=== PATIENT | male | born 1965 | race American Indian/Alaskan Native ===

== ENCOUNTER 2020-10-06 16:30 | Emergency (ER) | payer BC ==
[2020-10-06] MEDS ORDERED: MORPHINE 4 MG/1 ML INJ IV ONE (17:03)
[2020-10-06] MEDS ORDERED: ONDANSETRON 4 MG/2 ML INJ IV ONE (17:03)
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
[2020-10-06 18:46] VITALS: BP 150/78
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
[2020-10-06] MEDS ORDERED: oxyCODONE /ACETAMINOPHEN 5-325MG TAB PO ONE ×2 (19:03→22:00)
[2020-10-06] MEDS ORDERED: IBUPROFEN 800 MG TAB PO ONE ×2 (19:03→22:00)
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
[2020-10-06] MEDS ORDERED: ONDANSETRON 4 MG ODT TAB PO ONE (21:38)
== END 2020-10-06 21:00 | disposition home or self-care (01) ==
LOC: ED 16:30
DX: S82.122A Displaced fracture of lateral condyle of left tibia, initial encounter for closed fracture (principal); S50.812A Abrasion of left forearm, initial encounter; I10 Essential (primary) hypertension; Z79.899 Other long term (current) drug therapy; V49.29XA Unspecified car occupant injured in collision with other motor vehicles in nontraffic accident, initial encounter; Y92.410 Unspecified street and highway as the place of occurrence of the external cause; Y93.89 Activity, other specified; Y99.8 Other external cause status
CPT/HCPCS: 29505; 73552; 73562; 73590; 73700; 96374; 96375; 99284; J2270; J2405; Q0162

== ENCOUNTER 2020-12-28 09:57 | Outpatient (CLI) | payer BC ==
--- NOTE | 2020-12-28 11:07 | XRay Report ---
LEFT TIBIA-FIBULA 4 VIEW(S) INDICATION / CLINICAL INFORMATION: UNSPECIFIED FRACTURE UPPER END OF TIBIA COMPARISON: Intraoperative radiograph dated 10/15/2020 FINDINGS: BONES / JOINT(S): Surgical plate and screws project in stable position. Fracture deformity of the lat eral tibial plateau has a similar appearance. The distal tibia and fibula are unremarkable. Moderate tricompartmental degenerative arthrosis of the knee. There is degenerative enthesopathic change at th e Achilles attachment onto the calcaneus. SOFT TISSUES: No significant abnormality. ADDITIONAL FINDINGS: None. IMPRESSION: 1. Stable positioning of hardware without complication. Signer Name: Francois Cornell MD Signed: 12/28/2020 11:03 AM Workstation Name: [id number]
== END 2020-12-28 09:58 | disposition home or self-care (01) ==
LOC: XRAY 09:57
PROVIDERS: ATTEND Orthopaedic Surgery
DX: S82.109A Unspecified fracture of upper end of unspecified tibia, initial encounter for closed fracture (principal); S82.142A Displaced bicondylar fracture of left tibia, initial encounter for closed fracture; S82.122A Displaced fracture of lateral condyle of left tibia, initial encounter for closed fracture; M19.072 Primary osteoarthritis, left ankle and foot; X58.XXXA Exposure to other specified factors, initial encounter; Y93.89 Activity, other specified; Y92.89 Other specified places as the place of occurrence of the external cause; Y99.8 Other external cause status